=== PATIENT | male | born 1980 | race Caucasian/White ===

== ENCOUNTER 2016-12-08 05:51 | Emergency (ER) | payer MEDICAID ==
[~2016-12-08 05:51] MED LIST: BACLOFEN10 MG GT; MAALOX DPS30 ML GT; MIRALAX PACKET17 GM GT; NIZORAL SHAMPO120 ML TP; SURFAK DPS240 MG GT; TYLENOL DP650 MG/20. GT; [UNRECOGNIZED DRUG - OTHER] GT; [UNRECOGNIZED DRUG - OTHER] GT; [UNRECOGNIZED DRUG - OTHER] GT; [UNRECOGNIZED DRUG - OTHER] TP
--- NOTE | 2016-12-13 02:33 | ER ---
ADMIT: 12/08/2016 RM/LOC: ER [facility] MR#: [id number] [address] [id number] [place] [address] Emergency Room Report SEX: M AGE: 36 : 1980 DATE: 12/08/2016 TIME: 0551 hours. Please refer to my T-sheet for complete H and P. HISTORY OF PRESENT ILLNESS: Briefly, the patient is a 36-year-old, who pulled his G-button out, came in for replacement. No other complaints. He was brought in by caregiver. PHYSICAL EXAMINATION: VITAL SIGNS: Stable. EMERGENCY DEPARTMENT COURSE: They had their new G-button with them. I replaced without difficulty. He was aspirated gastric contents. He was ready to be discharged. ASSESSMENT: G-button dislodge replaced. PLAN: He may use. Luis Eid MD/ raine JOB #: [id number] CC: Luis Eid MD, Attending Physician Tobias Guillen MD, Family Physician
== END 2016-12-08 06:22 | disposition home or self-care (01) ==
LOC: ER 05:51
DX: Z43.1 Encounter for attention to gastrostomy (principal); G80.9 Cerebral palsy, unspecified